=== PATIENT | male | born 1985 | race Hispanic/Latino ===

== ENCOUNTER 2017-06-30 13:09 | Inpatient (IN) | payer MEDICAID ==
[2017-06-30 13:42] VITALS: BMI 34.4
--- NOTE | 2017-06-30 14:11 | C.PDOC ---
History Of Present Illness 31 year old male presents to ED requesting detox from IV heroin. Pt reports using 15-20 bags of heroin a day, last use was yesterday evening. Denies fever, cough, or any active physical complaints at this time. Chief Complaint (Nursing): Substance Abuse History Per: Patient History/Exam Limitations: no limitations Onset/Duration Of Symptoms: Gradual Current Symptoms Are (Timing): Still Present Suicide/Self Injury Attempted (Context): None Severity: None Pain Scale Rating Of: 0 Associated Symptoms: denies: Suicidal Thoughts, Suicidal Plan Involuntary Hold By: None Recent travel outside of the [place]: No Additional History Per: Patient Past Medical History Reviewed: Historical Data, Nursing Documentation, Vital Signs Vital Signs: Last Vital Signs Temp 98.4 F 06/30/17 18:23 Pulse 92 H 06/30/17 18:23 Resp 20 06/30/17 18:23 BP 109/62 06/30/17 18:23 Pulse Ox 96 06/30/17 18:23 Family History: States: Unknown Family Hx - Social History Hx Alcohol Use: No Hx Substance Use: Yes - Immunization History Hx Tetanus Toxoid Vaccination: No Hx Influenza Vaccination: No Hx Pneumococcal Vaccination: No Review Of Systems Except As Marked, All Systems Reviewed And Found Negative. Constitutional: Negative for: Fever, Chills Cardiovascular: Negative for: Chest Pain, Palpitations Respiratory: Negative for: Cough, Shortness of Breath Physical Exam - Physical Exam Appears: Non-toxic, No Acute Distress Skin: Warm, Dry, Other (track stratton to bilateral arms, no signs of infection) Head: Atraumatic, Normacephalic Oral Mucosa: Moist Cardiovascular: Rhythm Regular Respiratory: Normal Breath Sounds, No Rales, No Rhonchi, No Wheezing Gastrointestinal/Abdominal: Soft, No Tenderness Extremity: Normal ROM Neurological/Psych: Oriented x3, Normal Speech ED Course And Treatment - Laboratory Results Result Diagrams: 06/30/17 15:02 06/30/17 15:02 O2 Sat by Pulse Oximetry: 96 (RA) Pulse Ox Interpretation: Normal Medical Decision Making Medical Decision Making: Blood work, urinalysis ordered and reviewed. Disposition - Disposition Disposition: HOSPITALIZED Disposition Time: 15:50 Condition: STABLE - Clinical Impression Clinical Impression: Drug dependence, Drug abuse - Scribe Statement The provider has reviewed the documentation as recorded by the Jacob Saleem All medical record entries made by the Scribe were at my direction and personally dictated by me. I have reviewed the chart and agree that the record accurately reflects my personal performance of the history, physical exam, medical decision making, and the department course for this patient. I have also personally directed, reviewed, and agree with the discharge instructions and disposition.
[2017-06-30 15:10] LABS: BASO # 0.1 K/uL (0.0-0.2); EOS # 0.2 K/uL (0.0-0.7); EOS % 3.1 % (0.0-4.0); HEMOGLOBIN 13.6 g/dL (12.0-18.0); LYMPH # 2.4 K/uL (1.0-4.3); LYMPH % 42.5 % (20.0-40.0); MEAN CELL VOLUME 85.2 fL (80.0-94.0); MEAN CORPUSCULAR HEMOGLOBIN 29.5 pg (27.0-31.0); MEAN CORPUSCULAR HGB CONC 34.7 g/dL (33.0-37.0); MEAN PLATELET VOLUME 8.9 fL (7.2-11.7); MONO # 0.6 K/uL (0.0-0.8); MONO % 10.1 % (0.0-10.0); NEUT # 2.5 K/uL (1.8-7.0); NEUT % 43.3 % (50.0-75.0); NRBC % 0.1 % (0.0-2.0); RBC 4.59 Mil/uL (4.40-5.90); RED CELL DISTRIBUTION WIDTH 14.4 % (11.5-14.5); WHITE BLOOD COUNT 5.7 K/uL (4.8-10.8)
[2017-06-30 15:13] LABS: SQUAMOUS EPITHIAL 1 /hpf (0-5); URINE AMORPHOUS SEDIMENT OCC /ul (<OCC); URINE BILIRUBIN NEGATIVE (NEGATIVE); URINE BLOOD NEGATIVE (NEGATIVE); URINE CLARITY Hazy (Clear); URINE COLOR Yellow (YELLOW); URINE GLUCOSE (UA) NORMAL (Normal); URINE LEUKOCYTE ESTERASE NEG Leu/uL (Negative); URINE NITRATE NEGATIVE (NEGATIVE); URINE PROTEIN NEGATIVE (NEGATIVE)
[2017-06-30 15:21] LABS: ALB/GLOB RATIO 1.2 (1.0-2.1); ALBUMIN 4.1 g/dL (3.5-5.0); ALT/SGPT 42 U/L (21-72); AST/SGOT 25 U/L (17-59); BLOOD UREA NITROGEN 14 mg/dL (9-20); CALCIUM 9.4 mg/dl (8.6-10.4); GFR AFRICAN-AMERICAN > 60; GFR NON-AFRICAN AMERICAN > 60
[2017-06-30 15:34] LABS: BARBITURATES, UR NEGATIVE (NEGATIVE); BENZODIAZEPINES, UR NEGATIVE (NEGATIVE); PHENCYCLIDINE, UR NEGATIVE (NEGATIVE)
[2017-06-30 15:55] LABS: OPIATES, UR POSITIVE (NEGATIVE)
--- NOTE | 2017-06-30 17:31 | PCM.BM ---
Treatment Plan Problems - Problems identified on initial assessmt Potential for opiate withdrawal Date Initiated: 06/30/17 Time Initiated: 17:30 Assessment reference: NA Status: Active Priority: 1 Treatment assets and liabiliti Patient Assests: ADL independent, negotiates basic needs, cognitively intact Patient Liabilities: substance abuse (opiates,cocaine , THC) - Milieu Protocol Maintain good personal hygiene: daily Encourage regular showers, daily Remind patient to perform daily oral care, daily Assist patient to perform ADL's Conduct patient checks and document Observation sheet: Q15 minutes Maintain personal safety: every shift Educate patient to report safety concerns to staff, every shift Monitor environment for contraband/sharps Medication safety: Monitor for expected outcome, potential side effects: every shift, Assess barriers to learning: every shift, Assess readiness for medication education: every shift
--- NOTE | 2017-07-01 23:08 | PCM.PSYCH ---
Initial Psychiatric Evaluation - Initial Psychiatric Evaluation Type of Admission: Voluntary Legal Status: Capacity Chief Complaint (in patient's own words): "I need higher dose of methadone" History of Present Illness and Precipitating Events: This is a 31 years old male admitted for opioid detox treatment. Pt inject heroin 15-20 bags per day, started at the age of 22, he reproted withdrawal symptoms, such as yawning,, nasal and eye congestion, hot and cold sweats, cramps, etc. He reproted he was using chiqui 2 years ago. He reported that he smokes 1 1/2 ppd for many years. He reported craving, headaches, and restless feeling 2/2 to withdrawal symptoms. He start using cocaine at the age of 15. he is snorting adn smoking 4-5 cecily size bags daily. He drinks etoh occassionally. 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 He denied psychiatric symptoms, including SI, HI, intent or plan. He denied perceptual disturbances. Current Medications: Active Medications Generic Name Dose Route Start Last Admin Trade Name Freq PRN Reason Stop Dose Admin Clonidine HCl 0.1 mg 06/30/17 17:32 Catapres PO Q8 PRN COWS Score More or Equal to 5 Dicyclomine HCl 10 mg 06/30/17 17:36 Bentyl PO Q6 PRN Muscle spasm Gabapentin 100 mg 07/01/17 18:00 18 17:15 Neurontin PO 100 mg TID DUSTIN Administration Hydroxyzine HCl 25 mg 06/30/17 17:36 07/01/17 21:15 Atarax PO 25 mg Q6 PRN Administration Anxiety Ibuprofen 600 mg 06/30/17 17:36 Motrin Tab PO TID PRN Pain, moderate (4-7) Loperamide HCl 2 mg 06/30/17 17:32 Imodium PO Q8 PRN Diarrhea Methadone HCl 10 mg 07/01/17 10:45 07/01/17 11:30 Methadone PO 07/05/17 10:44 10 mg DAILY DUSTIN Administration Taper Nicotine 1 patch 07/01/17 13:00 07/01/17 13:02 Nicoderm Cq TD 1 patch DAILY DUSTIN Administration Ondansetron HCl 4 mg 06/30/17 17:32 Zofran Tab PO Q8 PRN Nausea/Vomiting Trazodone HCl 50 mg 06/30/17 21:55 07/01/17 21:15 Desyrel PO 50 mg HS PRN Administration Insomnia Past Psychiatric History - Past Psychiatric History Previous Treatment History: None History of Abuse: denied History of ETOH/Drug Use: please see HPI History of Family Illness: MOTHER SCHIZOPHRENIA Pertinent Medical Hx (Current Medical&Sleep Prob, Allergies): Allergies Allergy/AdvReac Type Severity Reaction Status Date / Time No Known Allergies Allergy Verified 06/30/17 13:41 No Known Home Med 06/30/17 Review of Systems - Review of Systems All systems: reviewed and no additional remarkable complaints except (HPI) - Constitutional Constitutional: UN - EENT Eyes: Discharge Ears: UNREMARKABLE Nose/Mouth/Throat: Nasal Congestion - Respiratory Respiratory: UNREMARKABLE - Gastrointestinal Gastrointestinal: Nausea - Genitourinary Genitourinary: UNREMARKABLE - Reproductive: Male Reproductive:Male: UNREMARKABLE - Musculoskeletal Musculoskeletal: Myalgias - Integumentary Integumentary: UNREMARKABLE - Neurological Neurological: UNREMARKABLE - Psychiatric Psychiatric: As Per HPI - Endocrine Endocrine: UNREMARKABLE - Hematologic/Lymphatic Hematologic: UNREMARKABLE Mental Status Examination - Personal Presentation Personal Presentation: Looks stated age, Dressed appropriate to season - Affect Affect: Constricted - Motor Activity Motor Activity: Calm - Reliability in Providing Information Reliability in Providing Information: Good - Speech Speech: Organized - Mood Mood: Anxious - Formal Thought Process Formal Thought Process: No Impairment - Hallucinations/Delusions Hallucinations: Other (denied) Delusions: Other (denied) - Obsessions/Compulsions Obsessions: None Compulsions: None - Cognitive Functions Orientation: Person, Place, Situation, Time Sensorium: Alert Attention/Concentration: Attentive Abstract Thinking: Thayne Estimate of Intelligence: Average Judgement: Intact, as evidence by: Good judgement, Intact, as evidence by: Insight regarding need for hospitalization Memory: Recent intact, as evidence by: Ability to recall events of the day - Risk Risk: Other (denied SI, HI, intent or plan) - Strength & Assets Inventory Strength & Assets Inventory: Family support, Education, Interests/hobbies, Cooperative - Limitations Limitations: Other (chronic illicit drug use) DSM 5 DX - DSM 5 DSM 5 Diagnosis: opioid dependence, severe, withdrawal symptoms, cigarette, nicotine dependence - Recommended/Plan of Treatment Treatment Recommendations and Plan of Treatment: Methadone detox Gabapentin for augmentation As needed meds and vitamins Attend groups and activities MA for abstinence and CBT for relapse prevention Support and psychoeducation Consider and encourage MAT~ Refer to after care time spend 33 minutes Projected ELOS: 5 days Prognosis: good Discharge Plan and Discharge Criteria: refer to after care
[2017-07-02 08:08] VITALS: RESP 18
--- NOTE | 2017-07-02 18:08 | PCM.PYCHPN ---
Psychiatric Progress Note - Psychiatric Progress Note Patient seen today, length of contact: 15 minutes Patient Chief Complaint: "I'm feeling better" Problems Identified/Issues Discussed: Pt was seen and evaluated. Chart reviewed. Nurse input received. He reproted that he is compliant with medication and it is helpful. He reported improvement in his withdrawal symptoms. However, he still feeling anxious and restless and had difficulty in sleep last night. Diagnostic Results: Opioid use d/o, severe, withdrawal DSM 5 Symptoms Update: Opioid use disorder, severe, dependence, withdrawal Medication Change: Yes (methadone taper daily) Medical Record Reviewed: Yes Mental Status Examination - Cognitive Function Orientation: Person, Place, Situation, Time Memory: Intact Attention: WNL Concentration: WNL Association: WN Fund of Knowledge: [facility] Decription of patient's judgement and insights: fair/improving - Mood Mood: Anxious - Affect Affect: Constricted - Speech Speech: Appropriate - Formal Thought Process Formal Thought Process: No Impairment Psychotic Thoughts and Behaviors: denied - Suicidal Ideation Suicidal Ideation: No Plan: denied - Homicidal Ideation Homicidal Ideation: No Plan: denied Goal/Treatment Plan - Goal/Treatment Plan Need for Continued Stay: Discharge may exacerbated symptoms Progress Toward Problem(s) and Goals/Treatment Plan: Methadone detox Increase Gabapentin Increase Trazodone As needed meds and vitamins Attend groups and activities MO for abstinence and CBT for relapse prevention Support and psychoeducation Consider and encourage MAT Estimated Date of D/C: 07/05/17 - Smoking Cessation Smoking Cessation Initiated: Yes
[2017-07-03 09:23] VITALS: TEMP 97.7
--- NOTE | 2017-07-03 10:54 | PCM.PYCHPN ---
Psychiatric Progress Note - Psychiatric Progress Note Patient seen today, length of contact: 15 minutes Medication Change: Yes (methadone taper daily) Medical Record Reviewed: Yes Mental Status Examination - Cognitive Function Orientation: Person, Place, Situation, Time Memory: Intact Attention: WNL Concentration: WNL Association: WNL Fund of Knowledge: WNL - Mood Mood: Anxious - Affect Affect: Constricted - Speech Speech: Appropriate - Formal Thought Process Formal Thought Process: No Impairment - Suicidal Ideation Suicidal Ideation: No - Homicidal Ideation Homicidal Ideation: No Goal/Treatment Plan - Goal/Treatment Plan Need for Continued Stay: Discharge may exacerbated symptoms Estimated Date of D/C: 07/05/17
[2017-07-03 12:54] VITALS: BP 126/79; PULSE 82; O2SAT 97
--- NOTE | 2017-07-03 12:59 | PCM.PYCHDC ---
Mental Status Examination - Mental Status Examination Orientation: Person, Place, Situation, Time Memory: Intact Mood: Neutral Affect: Constricted Speech: Soft Attention: WNL Concentration: WNL Association: WNL Fund of Knowledge: WNL Formal Thought Process: No Impairment Description of patient's judgement and insight: good, fair Psychotic Thoughts and Behaviors: denies any AVH Suicidal Ideation: No Current Homicidal Ideation?: No Discharge Summary - Discharge Note Reason for Hospitalization: This is a 31 years old male admitted for opioid detox treatment. Pt inject heroin 15-20 bags per day, started at the age of 22, he reproted withdrawal symptoms, such as yawning,, nasal and eye congestion, hot and cold sweats, cramps, etc. He reproted he was using chiqui 2 years ago. He reported that he smokes 1 1/2 ppd for many years. He reported craving, headaches, and restless feeling 2/2 to withdrawal symptoms. He start using cocaine at the age of 15. he is snorting adn smoking 4-5 cecily size bags daily. He drinks etoh occassionally. 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 He denied psychiatric symptoms, including SI, HI, intent or plan. He denied perceptual disturbances. Consultations:: List each consultation separately and include: 1. Reason for request. 2. Findings. 3. Follow-up Summary of Hospital Course include:: 1. Description of specific treatment plan utilized for patients during their course of treatmen. 2. Summarize the time- course for resolution of acute symptoms and/or regressed behaviors. 3. Describe issues identified and worked on during hospitalization. 4. Describe medication utilized. 5. Describe medical problems identified and treated. 6. Reassessment of suicide risk Summary of Hospital Course: During the course of his stay, patient (pt) started progressively improving and he reports improvement in his mood and withdrawal symptoms. He started attending groups and meetings and started socializing. Patient denied any feelings of hopelessness, helplessness, and worthlessness, denied any problem with the sleep or appetite, denied suicidal ideation or homicidal ideation. Pt denied any auditory or visual hallucinations. Some changes were made in his current medications and patient was discharged on following medications. He tolerated these medications very well and denied any side effects. He is willing to enroll in [facility] (he cannot go back to [facility]) . He also considers Suboxone maintenance and looks for psychiatrist at [facility]. - Final Diagnosis (DSM 5) Condition upon Discharge: STABLE DSM 5: opioid dependence, severe, withdrawal symptoms, cigarette, nicotine dependence Disposition: HOME/ ROUTINE Follow-up Treatment Plan: Education: Pt was educated and counseled about the risks and benefits of taking and not taking medications. Pt was educated and counseled about the risks of drinking and abusing drugs. Pt was educated and counseled to go to the ER or call 911 if pt develop suicidal ideation or homicidal ideation, worsening of symptoms or severe side effects of the meds. Prescriptions/Medication Reconciliation: Gabapentin [Neurontin] 300 mg PO BID #60 cap traZODone [Desyrel] 50 mg PO HS PRN #30 tab PRN Reason: Insomnia - Smoking Cessation Smoking Cessation Medication prescribed: No - Antipsychotic Medications Pt discharged on 2 or more routine antipsychotic medications: No
== END 2017-07-03 13:15 | disposition home or self-care (01) | DRG 745 ==
LOC: C.ER 13:09 → C.7D 16:40
PROVIDERS: ADMIT Psychiatry & Neurology Psychiatry; ATTEND Psychiatry & Neurology Psychiatry
PROC: HZ81ZZZ Medication Management for Substance Abuse Treatment, Methadone Maintenance (ICD-10-PCS; principal; 2017-06-30)
PROC: HZ2ZZZZ Detoxification Services for Substance Abuse Treatment (ICD-10-PCS; 2017-06-30)
PROC: HZ52ZZZ Individual Psychotherapy for Substance Abuse Treatment, Cognitive-Behavioral (ICD-10-PCS; 2017-06-30)
PROC: HZ59ZZZ Individual Psychotherapy for Substance Abuse Treatment, Supportive (ICD-10-PCS; 2017-06-30)
PROC: HZ56ZZZ Individual Psychotherapy for Substance Abuse Treatment, Psychoeducation (ICD-10-PCS; 2017-06-30)
DX: F11.23 Opioid dependence with withdrawal (principal); F17.210 Nicotine dependence, cigarettes, uncomplicated; Z81.8 Family history of other mental and behavioral disorders

== ENCOUNTER 2018-09-12 18:40 | Inpatient (IN) | payer MEDICAID ==
[2018-09-12 18:40] VITALS: BMI 34.4
[2018-09-12 21:31] LABS: BASO % 0.7 % (0.0-2.0); EOS # 0.2 K/uL (0.0-0.7); HEMOGLOBIN 13.5 g/dL (12.0-18.0); LYMPH # 2.6 K/uL (1.0-4.3); LYMPH % 36.4 % (20.0-40.0); MEAN CELL VOLUME 85.6 fL (80.0-94.0); MEAN CORPUSCULAR HEMOGLOBIN 29.2 pg (27.0-31.0); MEAN CORPUSCULAR HGB CONC 34.2 g/dL (33.0-37.0); MONO # 0.6 K/uL (0.0-0.8); MONO % 8.2 % (0.0-10.0); NEUT # 3.7 K/uL (1.8-7.0); NEUT % 51.7 % (50.0-75.0); NRBC % 0.1 % (0.0-2.0); RBC 4.63 Mil/uL (4.40-5.90); RED CELL DISTRIBUTION WIDTH 13.8 % (11.5-14.5); WHITE BLOOD COUNT 7.2 K/uL (4.8-10.8)
[2018-09-12 21:43] LABS: SQUAMOUS EPITHIAL < 1 /hpf (0-5); URINE BACTERIA RARE (<OCC); URINE BILIRUBIN NEGATIVE (NEGATIVE); URINE BLOOD NEGATIVE (NEGATIVE); URINE CALCIUM OXALATE CRYSTALS OCC /hpf (<OCC); URINE CLARITY Hazy (Clear); URINE COLOR Yellow (YELLOW); URINE GLUCOSE (UA) NORMAL (Normal); URINE LEUKOCYTE ESTERASE NEG Leu/uL (Negative); URINE PROTEIN NEGATIVE (NEGATIVE)
[2018-09-12 21:44] LABS: ALB/GLOB RATIO 1.4 (1.0-2.1); ALBUMIN 4.3 g/dL (3.5-5.0); ALT/SGPT 26 U/L (21-72); AST/SGOT 24 U/L (17-59); BLOOD UREA NITROGEN 10 mg/dL (9-20); CALCIUM 9.5 mg/dl (8.6-10.4); GFR NON-AFRICAN AMERICAN > 60
[2018-09-12 21:47] LABS: BARBITURATES, UR NEGATIVE (NEGATIVE); BENZODIAZEPINES, UR NEGATIVE (NEGATIVE); PHENCYCLIDINE, UR NEGATIVE (NEGATIVE)
[2018-09-12 21:49] LABS: OPIATES, UR POSITIVE (NEGATIVE)
--- NOTE | 2018-09-12 22:10 | C.PDOC ---
History Of Present Illness 32 year old male presents as a prescreen for heroin detox. Denies any complaints at this time. Time Seen by Provider: 09/12/18 19:58 Chief Complaint (Nursing): Substance Abuse History Per: Patient History/Exam Limitations: no limitations Onset/Duration Of Symptoms: Hrs Current Symptoms Are (Timing): Still Present Modifying Factor(s): Other (Heroin) Involuntary Hold By: None Recent travel outside of the [place]: No Past Medical History Reviewed: Historical Data, Nursing Documentation, Vital Signs Vital Signs: Last Vital Signs Temp 97.8 F 09/12/18 19:24 Pulse 88 09/12/18 19:24 Resp 16 09/12/18 19:24 BP 116/65 09/12/18 19:24 Pulse Ox 96 09/12/18 19:24 Primary Care Provider: Adrian Batres - Medical History PMH: Denies: Diabetes, Hepatitis, HIV, HTN, Seizures, Sexually Transmitted Disease - [facility] Procedures DETOXIFICATION SERVICES FOR SUBSTANCE ABUSE TREATMENT (06/30/17) INDIV PSYCHOTHERAPY FOR SUBSTANCE ABUSE TREATMENT, SUPPORT (06/30/17) INDIV PSYCHOTHERAPY FOR SUBSTANCE ABUSE, COGNITIV BEHAVIORAL (06/30/17) INDIV PSYCHOTHERAPY FOR SUBSTANCE ABUSE, PSYCHOEDUCATION (06/30/17) MEDS MGMT FOR SUBSTANCE ABUSE TREATMENT, METHADONE MAINT (06/30/17) Family History: States: Unknown Family Hx - Social History Hx Alcohol Use: No Hx Substance Use: Yes - Immunization History Hx Tetanus Toxoid Vaccination: No Hx Influenza Vaccination: No Hx Pneumococcal Vaccination: No Review Of Systems Constitutional: Negative for: Fever, Chills Cardiovascular: Negative for: Chest Pain, Palpitations Respiratory: Negative for: Cough, Shortness of Breath Gastrointestinal: Negative for: Nausea, Vomiting Neurological: Negative for: Weakness, Numbness Physical Exam - Physical Exam Appears: Non-toxic Skin: Normal Color, Warm, Dry Head: Atraumatic, Normacephalic Eye(s): bilateral: Normal Inspection Oral Mucosa: Moist Neck: Normal, Supple Chest: Symmetrical, No Tenderness Cardiovascular: Rhythm Regular Respiratory: Normal Breath Sounds, No Rales, No Rhonchi, No Wheezing Gastrointestinal/Abdominal: Normal Exam Back: Normal Inspection Extremity: Bilateral: Atraumatic Neurological/Psych: Oriented x3, Normal Speech, Normal Cognition Gait: Steady ED Course And Treatment - Laboratory Results Result Diagrams: 09/12/18 21:20 09/12/18 21:20 Lab Results: Total Bilirubin 0.2 mg/dL (0.2-1.3) 09/12/18 21:20 AST 24 U/L (17-59) 09/12/18 21:20 ALT 26 U/L (21-72) 09/12/18 21:20 Alkaline Phosphatase 63 U/L (38-126) 09/12/18 21:20 Total Protein 7.4 g/dL (6.3-8.3) 09/12/18 21:20 Albumin 4.3 g/dL (3.5-5.0) 09/12/18 21:20 Globulin 3.1 gm/dL (2.2-3.9) 09/12/18 21:20 Albumin/Globulin Ratio 1.4 (1.0-2.1) 09/12/18 21:20 Urine Color Yellow (YELLOW) 09/12/18 21:20 Urine Clarity Hazy (Clear) 09/12/18 21:20 Urine pH 5.0 (5.0-8.0) 09/12/18 21:20 Ur Specific [place] 1.031 (1.003-1.030) H 09/12/18 21:20 Urine Protein Negative mg/dL (NEGATIVE) 09/12/18 21:20 Urine Glucose (UA) Normal mg/dL (Normal) 09/12/18 21:20 Urine Ketones Negative mg/dL (NEGATIVE) 09/12/18 21:20 Urine Blood Negative (NEGATIVE) 09/12/18 21:20 Urine Nitrate Negative (NEGATIVE) 09/12/18 21:20 Urine Bilirubin Negative (NEGATIVE) 09/12/18 21:20 Urine Urobilinogen 2.0 mg/dL (0.2-1.0) 09/12/18 21:20 Ur Leukocyte Esterase Neg Radha/uL (Negative) 09/12/18 21:20 Urine WBC (Auto) 1 /hpf (0-5) 09/12/18 21:20 Urine RBC (Auto) < 1 /hpf (0-3) 09/12/18 21:20 Ur Squamous Epith Cells < 1 /hpf (0-5) 09/12/18 21:20 Calcium Oxalate Crystal Occ /hpf (<OCC) H 09/12/18 21:20 Urine Bacteria Rare (<OCC) 09/12/18 21:20 O2 Sat by Pulse Oximetry: 96 (room air) Pulse Ox Interpretation: Normal Progress Note: Blood work and urinalysis ordered. Crisis notifed. Patient medically cleared and accepted into detox unit. Disposition - Disposition Disposition: HOSPITALIZED Disposition Time: 22:34 Condition: STABLE Forms: [facility] (Malay) - Clinical Impression Clinical Impression: Opioid use disorder - PA / BROTH MIXER / Resident Statement MD/DO has reviewed & agrees with the documentation as recorded. - Scribe Statement The provider has reviewed the documentation as recorded by the Scribe Fly Gore All medical record entries made by the Biancaibrebecca were at my direction and personally dictated by me. I have reviewed the chart and agree that the record accurately reflects my personal performance of the history, physical exam, medical decision making, and the department course for this patient. I have also personally directed, reviewed, and agree with the discharge instructions and disposition.
--- NOTE | 2018-09-13 04:23 | PCM.BM ---
<Shefali Feliz - Last Filed: 09/13/18 04:20> Treatment Plan Problems - Problems identified on initial assessmt Denial Date Initiated: 09/12/18 Time Initiated: 23:15 Assessment reference: NA Status: Active Chronic Low Self Esteem Date Initiated: 09/12/18 Time Initiated: 23:15 Assessment reference: NA Status: Active Treatment assets and liabiliti Patient Assests: ADL independent, negotiates basic needs, cognitively intact Patient Liabilities: substance abuse (Opiates, Cocaine, Cannabis) - Milieu Protocol Maintain good personal hygiene: daily Encourage regular showers, daily Remind patient to perform daily oral care, every shift Assist patient to perform ADL's Conduct patient checks and document Observation sheet: Q15 minutes Maintain personal safety: every shift Educate patient to report safety concerns to staff, every shift Monitor environment for contraband/sharps Medication safety: Monitor for expected outcome, potential side effects: every shift, Assess barriers to learning: every shift, Assess readiness for medication education: every shift <Marlo Amaya - Last Filed: 09/13/18 14:37> - Diagnosis (1) Opioid use disorder Status: Acute Interventions: 09/13/18 14:37 * Assess 7x/week regarding severity of withdrawal * Educate regarding risks, benefits, side effects and alternatives of medications * Use Motivational Interviewing for abstinence * Use CBT for relapse prevention * Medication management for withdrawal symptoms * Encourage medication assisted treatment * <Mabel Rizo - Last Filed: 09/13/18 14:53> Family Contact Family involvement: Family/SO is involved Family contact name: Dad Family contacted how many times per week?: 2 - Goals for Treatment Patient goals for treatment: Complete detox and review aftercare options with counseling staff. Discharge/Continuing Care - Education Needs Education Needs: Family Diagnosis/Disease Process, Family Community resources, Patient Medication, Patient Diagnosis/Disease Process, Patient Coping Skills, Patient Anger Management skills, Patient Placement options, Patient Community resources - Discharge Discharge Criteria: No longer exhibiting s/s of withdrawal, Reduction of target symptoms (Pt. unsure of aftercare as of this writing.) - Treatment Team Participation Patient/Family/SO Statement: 09/13/18 14:53 "I don't know yet..." Discussed with Family/SO: No Was Patient/Family/SO present at Treatment Team Meeting: Yes
[2018-09-13] MEDS ORDERED: Aluminum Hydroxide/Magnesium Hydroxide Susp (30 mL) PO PRN (13:05)
--- NOTE | 2018-09-13 13:07 | PCM.PSYCH ---
Initial Psychiatric Evaluation - Initial Psychiatric Evaluation Type of Admission: Voluntary Legal Status: Capacity Chief Complaint (in patient's own words): "Withdrawing" History of Present Illness and Precipitating Events: Pt is switched from OBS to INPAT b/c he started to withdraw bad and score went above 10. Treatment started. He will need inpatient care. HPI: Pt is a 32 year old male with PMHx of polysubstance use disorder who presented to [facility] on 09/12 for detox for opioid use. He is 32 years old and wants more out of life. This is his second time at [facility], the first time was in June 2017. He has also been to [facility] for detox once before and never been to rehab. He primarily uses heroin about 15 to 20 bags per day. His last use was yesterday at 1pm. He has been using off and on for the past 13 years. The longest he has been clean on maintenance with methadone was from August to April 2018. He has overdosed 1x and passed out in 2018. Pt uses cocaine and marijuana occasionally. He also smokes about 10 cigarettes per day for the past 15 years. His last smoke was yesterday. He drinks 34 beers on occasion. He single, never been , and with no kids. He is currently unemployed and homeless, crashes at various friends places. He started using after his mother in 2005 and then things went downhill from there. He denies users in the family. He denies emotional, physical, or sexual abuse experience. Current Medications: Active Medications Generic Name Dose Route Start Last Admin Trade Name Porterq PRN Reason Stop Dose Admin Acetaminophen 650 mg 09/13/18 00:15 09/13/18 00:52 Tylenol 325mg Tab PO 650 mg Q6 PRN Administration Pain, moderate (4-7) Al Hydrox/Mg Hydrox/Simethicone 30 ml 09/13/18 13:05 Maalox 30 Ml PO TID PRN Indigestion / Heartburn Clonidine HCl 0.1 mg 09/13/18 13:05 Catapres PO Q4 PRN COWS Score More or Equal to 5 Hydroxyzine HCl 25 mg 09/13/18 00:16 Atarax PO Q6H PRN Anxiety Loperamide HCl 2 mg 09/13/18 13:05 Imodium PO Q8 PRN Diarrhea Ondansetron HCl 4 mg 09/13/18 13:05 Zofran Tab PO Q8 PRN Nausea/Vomiting Pneumococcal Polyvalent Vaccine 0.5 ml 09/16/18 10:00 Pneumovax 23 Vaccine IM 09/16/18 10:01 .ONCE ONE Trazodone HCl 100 mg 09/13/18 00:15 09/13/18 00:53 Desyrel PO 100 mg HS PRN Administration Insomnia Past Psychiatric History - Past Psychiatric History Pertinent Medical Hx (Current Medical&Sleep Prob, Allergies): Allergies Allergy/AdvReac Type Severity Reaction Status Date / Time No Known Allergies Allergy Verified 06/30/17 13:41 No Known Home Med 09/12/18
[2018-09-14 06:44] VITALS: RESP 18; O2SAT 98
[2018-09-14 09:50] VITALS: BP 118/72; PULSE 64; TEMP 97.7
--- NOTE | 2018-09-14 10:40 | PCM.PYCHDC ---
Mental Status Examination - Mental Status Examination Orientation: Person Discharge Summary - Discharge Note Consultations:: List each consultation separately and include: 1. Reason for request. 2. Findings. 3. Follow-up Summary of Hospital Course include:: 1. Description of specific treatment plan utilized for patients during their course of treatmen. 2. Summarize the time- course for resolution of acute symptoms and/or regressed behaviors. 3. Describe issues identified and worked on during hospitalization. 4. Describe medication utilized. 5. Describe medical problems identified and treated. 6. Reassessment of suicide risk Summary of Hospital Course: Pt is switched from OBS to INPAT b/c he started to withdraw bad and score went above 10. Treatment started. He will need inpatient care. HPI: Pt is a 32 year old male with PMHx of polysubstance use disorder who presented to [facility] on 09/12 for detox for opioid use. He is 32 years old and wants more out of life. This is his second time at [facility], the first time was in June 2017. He has also been to [facility] for detox once before and never been to rehab. He primarily uses heroin about 15 to 20 bags per day. His last use was yesterday at 1pm. He has been using off and on for the past 13 years. The longest he has been clean on maintenance with methadone was from August to April 2018. He has overdosed 1x and passed out in 2018. Pt uses cocaine and marijuana occasionally. He also smokes about 10 cigarettes per day for the past 15 years. His last smoke was yesterday. He drinks 34 beers on occasion. He single, never been , and with no kids. He is currently unemployed and homeless, crashes at various friends places. He started using after his mother in 2005 and then things went downhill from there. He denies users in the family. He denies emotional, physical, or sexual abuse experience. - Diagnosis (1) Opioid use disorder Current Visit: Yes Status: Acute - Final Diagnosis (DSM 5) Condition upon Discharge: STABLE Disposition: HOME/ ROUTINE
[2018-09-16] MEDS ORDERED: Pneumococcal 23-Valent Vaccine IM ONE (10:00)
== END 2018-09-14 10:50 | disposition left against medical advice (07) | DRG 770 ==
LOC: C.ER 18:40 → C.7D 22:30 → OBSVTOIN 09-13 13:02 → C.7D 09-13 16:31
PROC: HZ2ZZZZ Detoxification Services for Substance Abuse Treatment (ICD-10-PCS; principal; 2018-09-13)
PROC: HZ52ZZZ Individual Psychotherapy for Substance Abuse Treatment, Cognitive-Behavioral (ICD-10-PCS; 2018-09-13)
PROC: HZ59ZZZ Individual Psychotherapy for Substance Abuse Treatment, Supportive (ICD-10-PCS; 2018-09-13)
PROC: HZ56ZZZ Individual Psychotherapy for Substance Abuse Treatment, Psychoeducation (ICD-10-PCS; 2018-09-13)
PROC: HZ42ZZZ Group Counseling for Substance Abuse Treatment, Cognitive-Behavioral (ICD-10-PCS; 2018-09-13)
PROC: HZ46ZZZ Group Counseling for Substance Abuse Treatment, Psychoeducation (ICD-10-PCS; 2018-09-13)
PROC: GZHZZZZ Group Psychotherapy (ICD-10-PCS; 2018-09-13)
PROC: GZ58ZZZ Individual Psychotherapy, Cognitive-Behavioral (ICD-10-PCS; 2018-09-13)
PROC: GZ56ZZZ Individual Psychotherapy, Supportive (ICD-10-PCS; 2018-09-13)
DX: F11.23 Opioid dependence with withdrawal (principal); F17.210 Nicotine dependence, cigarettes, uncomplicated; F12.90 Cannabis use, unspecified, uncomplicated; F14.90 Cocaine use, unspecified, uncomplicated; Z59.0 Homelessness